=== PATIENT | female | born 1985 | race Caucasian/White ===

== ENCOUNTER 2016-11-05 00:53 | Emergency (ER) | payer OTHER ==
[2016-11-05] MEDS ORDERED: DICYCLOMINE 10 MG CAPSULE PO STA (01:07)
[2016-11-05] MEDS ORDERED: MAG HYDROX/AL HYDROX/SIMETH 30 ML UDC PO STA (01:07)
[2016-11-05] MEDS ORDERED: LIDOCAINE VISCOUS 2% 15 ML UDC MM STA (01:07)
[2016-11-05] MEDS ORDERED: FAMOTIDINE 20 MG/2 ML VIAL IVP STA (01:07)
[2016-11-05] MEDS ORDERED: ONDANSETRON 4 MG/2 ML VIAL IVP STA (01:08)
[2016-11-05] MEDS ORDERED: ONDANSETRON 4 MG/2 ML VIAL ONE (01:13)
[2016-11-05] MEDS ORDERED: LIDOCAINE VISCOUS 2% 15 ML UDC MM ONE (01:13)
[2016-11-05] MEDS ORDERED: FAMOTIDINE 20 MG/2 ML VIAL ONE (01:14)
[2016-11-05] MEDS ORDERED: DICYCLOMINE 10 MG CAPSULE PO ONE (01:14)
[2016-11-05] MEDS ORDERED: MAG HYDROX/AL HYDROX/SIMETH 30 ML UDC ONE (01:14)
== END 2016-11-05 03:16 | disposition home or self-care (01) ==
DX: K52.9 Noninfective gastroenteritis and colitis, unspecified (principal); R07.9 Chest pain, unspecified; E03.9 Hypothyroidism, unspecified
CPT/HCPCS: 36415; 71020; 80053; 81003; 83690; 84484; 85025; 93005; 93010; 96374; 96375; 99283; 99284; A9270

== ENCOUNTER 2017-02-19 13:09 | Outpatient (CLI) | payer OTHER ==
[2017-02-19 14:01] LABS: BASOPHILS % (AUTO) 0.5 %; EOSINOPHILS # (AUTO) 0.1 10^3/uL (0.0-0.7); EOSINOPHILS % (AUTO) 1.4 %; HCT - HEMATOCRIT 37.5 % (37.0-47.0); HGB - HEMOGLOBIN 12.4 g/dL (12.0-16.0); LYMPHOCYTES % (AUTO) 43.7 %; MEAN CORPUSCULAR HEMOGLOBIN 27.9 pg (27.0-31.0); MEAN CORPUSCULAR VOLUME 84.7 fL (81.0-99.0); MONOCYTES # (AUTO) 0.5 10^3/uL (0.0-1.0); MONOCYTES % (AUTO) 12.1 %; NEUTROPHILS # (AUTO) 1.9 10^3/uL (1.5-6.6); NEUTROPHILS % (AUTO) 42.3 %; RED BLOOD COUNT 4.43 10^6/uL (4.20-5.40); RED CELL DISTRIBUTION WIDTH 14.2 % (12.0-15.0); UNCORRECTED WHITE BLOOD COUNT 4.5 x10^3/uL; WHITE BLOOD COUNT 4.5 x10^3/uL (4.8-10.8)
--- NOTE | 2017-02-19 14:09 | XRAY Preliminary Report ---
Exam: XR Chest 2 View PA/LAT IMPRESSION: Normal 2-view chest radiography. [facility] SITE ID: [id number]
--- NOTE | 2017-02-19 14:11 | XRAY Report ---
EXAM: CHEST RADIOGRAPHY EXAM DATE: 02/19/2017 01:46 PM. CLINICAL HISTORY: Pneumonia COMPARISON: Chest x-ray 11/05/2016. TECHNIQUE: 2 views. FINDINGS: Lungs/Pleura: No focal opacities evident. No pleural effusion. No pneumothorax. Normal volumes. Mediastinum: Heart and mediastinal contours are unremarkable. Other: None. IMPRESSION: Normal 2-view chest radiography. [facility] Referring Provider Line: [phone] SITE ID: [id number]
[2017-02-19 14:16] LABS: ALBUMIN/GLOBULIN RATIO 1.1 (1.0-2.2); BILIRUBIN,TOTAL 0.5 mg/dL (0.2-1.0); CALCIUM 8.8 mg/dL (8.5-10.3); CREATININE 0.8 mg/dL (0.4-1.0); POTASSIUM 3.8 mmol/L (3.5-5.0); TOTAL PROTEIN 7.7 g/dL (6.7-8.2)
== END 2017-02-19 13:10 | disposition home or self-care (01) ==
LOC: LAB 13:09
PROVIDERS: ATTEND Specialist
DX: J18.9 Pneumonia, unspecified organism (principal); E66.9 Obesity, unspecified; R53.83 Other fatigue
CPT/HCPCS: 36415; 71020; 80053; 85025

== ENCOUNTER 2017-03-29 14:25 | Outpatient (CLI) | payer OTHER | END 2017-03-29 14:26 | disposition home or self-care (01) | LOC: SC 14:25 | PROVIDERS: ATTEND Nurse Practitioner Family | DX: G47.10 Hypersomnia, unspecified (principal); G47.8 Other sleep disorders; R06.83 Snoring | CPT/HCPCS: 99203; 99212 ==

== ENCOUNTER 2017-05-13 21:57 | Outpatient (CLI) | payer OTHER | END 2017-05-13 21:58 | disposition home or self-care (01) | LOC: SC 21:57 | PROVIDERS: ATTEND Internal Medicine Pulmonary Disease | DX: G47.9 Sleep disorder, unspecified (principal); R06.83 Snoring; R51 Headache; R53.83 Other fatigue; R00.2 Palpitations | CPT/HCPCS: 95810 ==

== ENCOUNTER 2017-06-08 14:22 | Outpatient (CLI) | payer OTHER | END 2017-06-08 14:23 | disposition home or self-care (01) | LOC: SC 14:22 | PROVIDERS: ATTEND Nurse Practitioner Family | DX: R06.83 Snoring (principal); E66.01 Morbid (severe) obesity due to excess calories; R53.83 Other fatigue | CPT/HCPCS: 99212; 99214 ==

== ENCOUNTER 2017-08-25 10:06 | Outpatient (CLI) | payer OTHER | END 2017-08-25 10:07 | disposition home or self-care (01) | LOC: SC 10:06 | PROVIDERS: ATTEND Nurse Practitioner Family | DX: G47.30 Sleep apnea, unspecified (principal); R06.83 Snoring | CPT/HCPCS: 99212; 99213 ==

== ENCOUNTER 2017-09-13 16:29 | Outpatient (CLI) | payer OTHER ==
[2017-09-13 17:10] LABS: HB2 TOTAL 14.3 g/dL; HEMOGLOBIN A1C 0.54 g/dL; HEMOGLOBIN A1C % 5.6 % (4.6-6.2)
[2017-09-13 17:31] LABS: T4 (THYROXINE) 6.63 ug/dL (6.09-12.23)
[2017-09-13 17:35] LABS: THYROID STIMULATING HORMONE 2.59 uIU/mL (0.34-5.60)
== END 2017-09-13 16:30 | disposition home or self-care (01) ==
LOC: LAB 16:29
PROVIDERS: ATTEND Physician Assistant
DX: R53.83 Other fatigue (principal); R73.01 Impaired fasting glucose
CPT/HCPCS: 36415; 83036; 84436; 84443

== ENCOUNTER 2017-10-13 09:50 | Outpatient (CLI) | payer OTHER ==
--- NOTE | 2017-10-14 06:58 | MRI Report ---
EXAM: MRI LUMBAR SPINE WITHOUT CONTRAST EXAM DATE: 10/13/2017 10:37 AM. CLINICAL HISTORY: Low back pain. Radiating low back pain down the right lower extremity. Right foot n umbness. COMPARISON: None. TECHNIQUE: Multiplanar, multisequence T1-weighted and fluid-sensitive sequences of the lumbar spine f rom T12 to S1 without contrast. Other: None. FINDINGS: Spinal Cord: The conus terminates at T12. The conus medullaris and cauda equina are unremarkable. Alignment: No scoliosis or spondylolisthesis. Bone Marrow: Five [id number] lumbar vertebral bodies are assumed. T11 vertebral body hemangioma. Multiple small chronic Schmorl's nodes including superiorly at T11 and T12 and inferiorly at T12. Disk Levels/Facets: T12-L1: Unremarkable. L1-L2: Unremarkable. L2-L3: Unremarkable. L3-L4: Unremarkable. L4-L5: Unremarkable. L5-S1: Mild facet hypertrophy. Slight annular bulge, no focal extrusion or significant stenosis. No s ignificant disk space narrowing. Musculature: Mild diffuse posterior paraspinal muscle fatty atrophy. Other: Minimal midline nonspecific subcutaneous midline edema centered at L2-L3, a very common findin g that is usually of no clinical significance. IMPRESSION: No acute abnormality of the lumbar spine. Minimal degenerative changes. No significant st enosis. No focal nerve root/cauda equina impingement to explain a radiculopathy. Comment: The following findings are so common in adults without low back pain that while we report th eir presence, they must be interpreted with caution and in the context of the clinical situation. (Re dev Berrios et al, Spine 2001) Prevalence of findings in patients without low back pain: Disk degeneration (any evidence): 92% Disk desiccation/T2 signal loss: 83% Disk height loss: 56% Disk bulge: 64% Disk protrusion: 32% Annular tear/high intensity zone: 38% [facility] Referring Provider Line: [phone] SITE ID: [id number]
== END 2017-10-13 09:51 | disposition home or self-care (01) ==
LOC: DI 09:50
PROVIDERS: ATTEND Physician Assistant
DX: M47.897 Other spondylosis, lumbosacral region (principal); M51.37 Other intervertebral disc degeneration, lumbosacral region
CPT/HCPCS: 72148

== ENCOUNTER 2018-01-02 10:46 | Outpatient (CLI) | payer OTHER | END 2018-01-02 10:47 | disposition home or self-care (01) | LOC: SC 10:46 | PROVIDERS: ATTEND Nurse Practitioner Family | DX: G47.33 Obstructive sleep apnea (adult) (pediatric) (principal) | CPT/HCPCS: 99212; 99214 ==

== ENCOUNTER 2018-02-21 08:54 | Outpatient (CLI) | payer OTHER | END 2018-02-21 08:55 | disposition home or self-care (01) | LOC: SC 08:54 | PROVIDERS: ATTEND Nurse Practitioner Family | DX: G47.33 Obstructive sleep apnea (adult) (pediatric) (principal) | CPT/HCPCS: 99212; 99214 ==

== ENCOUNTER 2018-03-29 11:06 | Outpatient (CLI) | payer OTHER | END 2018-03-29 11:07 | disposition home or self-care (01) | LOC: SC 11:06 | PROVIDERS: ATTEND Nurse Practitioner Family | DX: G47.33 Obstructive sleep apnea (adult) (pediatric) (principal) | CPT/HCPCS: 99212; 99214 ==

== ENCOUNTER 2018-04-06 17:22 | Emergency (ER) | payer OTHER ==
--- NOTE | 2018-04-06 18:10 | ED Physician Documentation ---
History of Present Illness - Stated complaint Stated Complaint: BACK PX - Chief complaint Chief Complaint: General - History obtained from History obtained from: Patient - History of Present Illness Timing: Other (For the last 2 weeks and worse over the last 3 days she has had left posterior mid and upper back pain that is worse if she bends, takes a deep breath, or twists. It is mild with shallow breathing and worse with deep breathing. She is not short of breath per se. She had a near fall a couple of weeks ago where she might have strained the chest wall but did not hit it directly. She denies any significant cough or fever. No significant pedal edema or calf pain. There is a small possibility of .) Review of Systems Constitutional: denies: Fever, Chills Throat: denies: Dental pain / toothache, Sore throat Cardiac: denies: Palpitations Respiratory: denies: Dyspnea, Cough PD PAST MEDICAL HISTORY - Past Medical History Past Medical History: Yes Endocrine/Autoimmune: HyPOthyroidism - Past Surgical History Past Surgical History: No - Allergies Allergies/Adverse Reactions: Allergies Allergy/AdvReac Type Severity Reaction Status Date / Time Penicillins Allergy Rash Verified 11/05/16 01:01 Sulfa (Sulfonamide AdvReac Emesis Verified 11/05/16 01:01 Antibiotics) Tetracyclines AdvReac Emesis Verified 04/06/18 17:32 - Social History Does the pt smoke?: No Smoking Status: Never smoker Does the pt drink ETOH?: No Does the pt have substance abuse?: No - Immunizations Immunizations are current?: Yes - POLST Patient has POLST: No POLST Status: Full Code PD ED PE NORMAL - Vitals Vital signs reviewed: Yes - General General: Alert and oriented X 3, No acute distress - HEENT HEENT: PERRL, EOMI, Pharynx benign - Neck Neck: Supple, no meningeal sign, No bony TTP - Cardiac Cardiac: RRR, No murmur - Respiratory Respiratory: No respiratory distress, Clear bilaterally, Other (She has tenderness of the left parathoracic muscles and ribs laterally without abdominal tenderness. Lungs are clear.) - Extremities Extremities: No edema, No calf tenderness / cord - Neuro Neuro: Alert and oriented X 3, Normal speech Results - Vitals Vitals: Vital Signs - 24 hr 04/06/18 17:28 Temperature 36.1 C L Heart Rate 76 Respiratory 20 Rate Blood Pressure 159/89 H O2 Saturation 100 Oxygen O2 Source Room air - Labs Labs: Laboratory Tests 04/06/18 16:30 Urine Color YELLOW Urine Clarity CLEAR Urine pH 6.0 Ur Specific [place] 1.010 Urine Protein NEGATIVE Urine Glucose (UA) NEGATIVE Urine Ketones NEGATIVE Urine Occult Blood TRACE-LYSE Urine Nitrite NEGATIVE Urine Bilirubin NEGATIVE Urine Urobilinogen 0.2 (NORMAL) Ur Leukocyte Esterase NEGATIVE Ur Microscopic Review NOT INDICATED Urine Culture Comments NOT INDICATED Urine HCG, Qual NEGATIVE - Rads (name of study) Left ribs and chest Radiology: EMP read contemporaneously (normal) PD MEDICAL DECISION MAKING - ED course ED course: I considered pulmonary embolism in this patient. Clinically the pretest probability of pulmonary embolism is less than 15%. I applied to the PERC rules as follows: The patient's age is under 50, heart rate less than 100, oxygen saturation greater than 94%, the patient does not have a history of DVT or PE. Patient has no recent trauma or surgery. The patient has no hemoptysis. The patient is not on exogenous estrogens. The patient does not have clinical signs suggesting DVT. As such the patient ruled out for pulmonary embolism by PERC criteria. - Sepsis Event Vital Signs: Vital Signs - 24 hr 04/06/18 17:28 Temperature 36.1 C L Heart Rate 76 Respiratory 20 Rate Blood Pressure 159/89 H O2 Saturation 100 Oxygen O2 Source Room air Departure - Departure Disposition: 01 Home, Self Care Clinical Impression: Intercostal muscle strain Qualifiers: Encounter type: initial encounter Qualified Code(s): S29.011A - Strain of muscle and tendon of front wall of thorax, initial encounter Condition: Good Record reviewed to determine appropriate education?: Yes Instructions: ED Contusion Chest Wall Comments: Ibuprofen and heat for pain, return if worse. Follow-up with your doctor in a week if not better. Your blood pressure was elevated today on check into the emergency department. This does not mean that you have hypertension, it is a common phenomenon to come to the emergency department and have elevated blood pressure. I recommend that you see your primary care physician within the week to have it rechecked when you are feeling better.
[2018-04-06 18:23] LABS: BILIRUBIN,URINE NEGATIVE (NEGATIVE); GLUCOSE, URINE (UA) NEGATIVE (NEGATIVE); KETONES,URINE (UA) NEGATIVE (NEGATIVE); LEUKOCYTE ESTERASE, URINE NEGATIVE (NEGATIVE); NITRITE,URINE NEGATIVE (NEGATIVE); OCCULT BLOOD,URINE TRACE-LYSE (NEGATIVE); PROTEIN,URINE NEGATIVE (NEGATIVE); UROBILINOGEN,URINE 0.2 (NORMAL) E.U./dL (NORMAL)
[2018-04-06 18:27] LABS: CLARITY,URINE CLEAR (CLEAR); HCG UR QUAL NEGATIVE
--- NOTE | 2018-04-06 19:16 | XRAY Report ---
Procedure Date: 04/06/2018 Accession Number: [id number] / [id number] Procedure: XR - Ribs w/PA Chest LT CPT Code: FULL RESULT: EXAM: LEFT RIB RADIOGRAPHY EXAM DATE: 04/06/2018 07:00 PM. CLINICAL HISTORY: Wait for neg preg. L chest wall pain. COMPARISON: None. TECHNIQUE: 1 view of the chest and 2 views of the ribs. FINDINGS: Bones: Normal. No fracture or bone lesion. Lungs: No focal opacities. No pneumothorax. No pleural effusions. Mediastinum: Heart and mediastinal contours are unremarkable. Other: None. IMPRESSION: Normal chest and rib radiography. [facility]
[2018-04-06 19:28] VITALS: BP 123/73
== END 2018-04-06 19:27 | disposition home or self-care (01) ==
LOC: ED 17:22
DX: S29.011A Strain of muscle and tendon of front wall of thorax, initial encounter (principal); R03.0 Elevated blood-pressure reading, without diagnosis of hypertension
CPT/HCPCS: 81001; 81003; 81025; 87086; 99283

== ENCOUNTER 2018-04-26 08:51 | Emergency (ER) | payer OTHER ==
[2018-04-26 09:00] VITALS: BP 133/88
[2018-04-26] MEDS ORDERED: DEXAMETHASONE 10 MG/ML VIAL PO STA (10:14)
[2018-04-26] MEDS ORDERED: MECLIZINE 12.5 MG TABLET PO STA (10:14)
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
--- NOTE | 2018-04-26 10:43 | CT Report ---
Procedure Date: 04/26/2018 Accession Number: [id number] / [id number] Procedure: CT - Head W/O CPT Code: FULL RESULT: EXAM: CT HEAD EXAM DATE: 04/26/2018 10:33 AM. CLINICAL HISTORY: Nasal contusion persistent dizziness. COMPARISON: None. TECHNIQUE: Multiaxial CT images were obtained from the foramen magnum to the vertex. Reformats: Coronal. IV contrast: None. In accordance with CT protocol optimization, one or more of the following dose reduction techniques were utilized for this exam: automated exposure control, adjustment of mA and/or KV based on patient size, or use of iterative reconstructive technique. FINDINGS: Parenchyma: No intraparenchymal hemorrhage. No evidence of mass, midline shift, or CT findings of infarction. Neville-white differentiation is distinct. Extraaxial Spaces: Normal for age. No subdural or epidural collections identified. Ventricles: Normal in size and position. Sinuses and Orbits: Imaged paranasal sinuses, orbits, and mastoids show no significant abnormality. Bones: No evidence of fracture or calvarial defect. Other: None. IMPRESSION: Normal head CT. [facility]
== END 2018-04-26 11:26 | disposition home or self-care (01) ==
LOC: ED 08:51
DX: H83.03 Labyrinthitis, bilateral (principal)
CPT/HCPCS: 70450; 99283; A9270

== ENCOUNTER 2018-05-01 09:26 | Emergency (ER) | payer OTHER ==
--- NOTE | 2018-05-01 10:12 | ED Physician Documentation ---
PD HPI NVD - Stated complaint Stated Complaint: DIZZY/NAUSEA/VOMITING - Chief complaint Chief Complaint: Neuro - History obtained from History obtained from: Patient - History of Present Illness Timing - onset: How many weeks ago (2 weeks of undulating dgree of symptoms. Better rested, worse when gets up from bed in AMs. Does have feeling of off balance.) Timing - duration: Weeks Timing - details: Gradual onset, Still present, Waxing and waning Associated symptoms: No: Fever, Near syncope / syncope, Loss of appetite, Dysuria Contributing factors: No: Sick contact, Bad food, Travel Worsened by: Moving (head) Similar symptoms before: Has not had sx before Recently seen: Emergency Dept (5 days ago for these symptoms, with normal head CT and labs. Rx with Meclizine only. She says it helps symptoms but theoverall dizziness has persisted when not taking meds.) Review of Systems Constitutional: denies: Fever, Chills, Myalgias Eyes: denies: Loss of vision, Decreased vision, Photophobia Ears: reports: Tinnitus/ringing. denies: Loss of hearing, Ear pain Nose: denies: Rhinorrhea / runny nose, Congestion, Sinus pressure / pain Throat: denies: Dental pain / toothache, Sore throat Cardiac: denies: Chest pain / pressure, Palpitations Respiratory: denies: Dyspnea, Cough GI: denies: Abdominal Pain, Nausea, Vomiting PD PAST MEDICAL HISTORY - Past Medical History Cardiovascular: None Respiratory: None Neuro: None Endocrine/Autoimmune: HyPOthyroidism - Past Surgical History Past Surgical History: No - Present Medications Home Medications: Ambulatory Orders Medication Instructions Recorded Confirmed Meclizine HCl 25 mg PO Q6HR PRN #20 tab.chew 04/26/18 Cetirizine [ZyrTEC] 10 mg PO DAILY #20 tablet 05/01/18 Dexamethasone [Decadron] 4 mg PO DAILY #5 tablet 05/01/18 Meclizine [Antivert] 25 mg PO Q6H PRN #30 tablet 05/01/18 - Allergies Allergies/Adverse Reactions: Allergies Allergy/AdvReac Type Severity Reaction Status Date / Time adhesive tape Allergy Rash Verified 04/26/18 09:15 Penicillins Allergy Rash Verified 04/26/18 09:00 Sulfa (Sulfonamide AdvReac Emesis Verified 04/26/18 09:00 Antibiotics) Tetracyclines AdvReac Emesis Verified 04/26/18 09:00 - Social History Does the pt smoke?: No Smoking Status: Never smoker Does the pt drink ETOH?: No Does the pt have substance abuse?: No - Family History Family history: reports: Non contributory - Immunizations Immunizations are current?: Yes - POLST Patient has POLST: No POLST Status: Full Code PD ED PE NORMAL - Vitals Vital signs reviewed: Yes - General General: Alert and oriented X 3, No acute distress, Well developed/nourished - HEENT HEENT: PERRL, EOMI (mild nystagmus to the left), Ears normal, Moist mucous membranes, Pharynx benign - Neck Neck: Supple, no meningeal sign, No adenopathy, No JVD - Cardiac Cardiac: RRR, No murmur - Respiratory Respiratory: Clear bilaterally - Abdomen Abdomen: Soft, Non tender - Back Back: No CVA TTP - Derm Derm: Normal color, Warm and dry - Neuro Neuro: Alert and oriented X 3, logistics solution manager 2-12 intact, No motor deficit, No sensory deficit, Normal speech, Other Eye Opening: Spontaneous Motor: Obeys Commands Verbal: Oriented GCS Score: 15 Results - Vitals Vitals: Oxygen O2 Source Room air - Labs Labs: Laboratory Tests 05/01/18 05/01/18 05/01/18 10:55 10:55 10:55 WBC 5.7 RBC 4.96 Hgb 13.8 Hct 42.6 MCV 85.9 MCH 27.8 MCHC 32.4 RDW 13.8 Plt Count 291 MPV 7.7 L Neut # (Auto) 3.0 Lymph # (Auto) 2.1 [place]royo # (Auto) 0.4 Eos # (Auto) 0.2 Baso # (Auto) 0.0 Absolute Nucleated RBC 0.00 Nucleated RBC % 0.0 ESR 17 Sodium 137 Potassium 4.1 Chloride 102 Carbon Dioxide 26 Anion Gap 9.0 BUN 13 Creatinine 0.7 Estimated GFR (MDRD) 96 Glucose 91 Calcium 9.3 Magnesium 1.9 Total Bilirubin 0.9 AST 21 ALT 31 Alkaline Phosphatase 79 Total Protein 7.8 Albumin 4.3 Globulin 3.5 Albumin/Globulin Ratio 1.2 Lipase 34 TSH 05/01/18 10:55 WBC RBC Hgb Hct MCV MCH MCHC RDW Plt Count MPV Neut # (Auto) Lymph # (Auto) [place] # (Auto) Eos # (Auto) Baso # (Auto) Absolute Nucleated RBC Nucleated RBC % ESR Sodium Potassium Chloride Carbon Dioxide Anion Gap BUN Creatinine Estimated GFR (MDRD) Glucose Calcium Magnesium Total Bilirubin AST ALT Alkaline Phosphatase Total Protein Albumin Globulin Albumin/Globulin Ratio Lipase TSH 2.25 PD MEDICAL DECISION MAKING - ED course Complexity details: reviewed results (CT head 5 days ago was okay. ), considered differential (dizziness/vertigo. States trouble walking but has straight/steady gait here. No ataxia with hands. Normal vision. Seems peripheral vertigo. Has referral to ENT but appt not until June. In addition to labrynthitis, could consider tumor/swelling/bleed, but had CT head at prior visit. Consider MRI for MS or other small findings. Consider MRI of ear/cochlear ), d/w patient - Sepsis Event Vital Signs: Oxygen O2 Source Room air Departure - Departure Disposition: Home, Self Care Clinical Impression: Vertigo Condition: Stable Record reviewed to determine appropriate education?: Yes Instructions: ED Vertigo Unspecified Follow-Up: Caroline Brownlee PA-C [Primary Care Provider] - Prescriptions: Cetirizine [ZyrTEC] 10 mg PO DAILY #20 tablet Dexamethasone [Decadron] 4 mg PO DAILY #5 tablet Meclizine [Antivert] 25 mg PO Q6H PRN #30 tablet PRN Reason: Vertigo Comments: Drink lots of fluids. Steroids daily for the next 5 days. Add cetirizine antihistamine daily for the next week or 2. Meclizine if needed for dizziness/ vertigo. Call the ENT to see if they have a sooner appointment than June. Activity as able. Discharge Date/Time: 05/01/18 13:08
[2018-05-01] MEDS ORDERED: DEXAMETHASONE 10 MG/ML VIAL PO STA (10:37)
[2018-05-01 11:03] LABS: BASOPHILS % (AUTO) 0.5 %; EOSINOPHILS # (AUTO) 0.2 10^3/uL (0.0-0.7); EOSINOPHILS % (AUTO) 2.8 %; HGB - HEMOGLOBIN 13.8 g/dL (12.0-16.0); LYMPHOCYTES # (AUTO) 2.1 10^3/uL (1.5-3.5); LYMPHOCYTES % (AUTO) 36.8 %; MEAN CORPUSCULAR HEMOGLOBIN 27.8 pg (27.0-31.0); MEAN CORPUSCULAR HGB CONC 32.4 g/dL (32.0-36.0); MEAN CORPUSCULAR VOLUME 85.9 fL (81.0-99.0); MEAN PLATELET VOLUME 7.7 fL (7.9-10.8); MONOCYTES # (AUTO) 0.4 10^3/uL (0.0-1.0); MONOCYTES % (AUTO) 7.4 %; NEUTROPHILS % (AUTO) 52.5 %; PLT - PLATELET COUNT 291 10^3/uL (130-450); RED BLOOD COUNT 4.96 10^6/uL (4.20-5.40); RED CELL DISTRIBUTION WIDTH 13.8 % (12.0-15.0); WHITE BLOOD COUNT 5.7 x10^3/uL (4.8-10.8)
[2018-05-01 11:16] LABS: ALBUMIN 4.3 g/dL (3.2-5.5); ALBUMIN/GLOBULIN RATIO 1.2 (1.0-2.2); BILIRUBIN,TOTAL 0.9 mg/dL (0.2-1.0); CALCIUM 9.3 mg/dL (8.5-10.3); CREATININE 0.7 mg/dL (0.4-1.0); MAGNESIUM 1.9 mg/dL (1.7-2.8); TOTAL PROTEIN 7.8 g/dL (6.7-8.2)
[2018-05-01 12:35] VITALS: BP 147/91
== END 2018-05-01 13:08 | disposition home or self-care (01) ==
LOC: ED 09:26
DX: R42 Dizziness and giddiness (principal); H93.19 Tinnitus, unspecified ear
CPT/HCPCS: 36415; 80053; 83690; 83735; 84443; 85025; 85651; 99283

== ENCOUNTER 2018-05-09 16:44 | Emergency (ER) | payer OTHER ==
--- NOTE | 2018-05-09 17:36 | ED Physician Documentation ---
PD HPI HEAD INJURY - Stated complaint Stated Complaint: DIZZY/GLF - Chief complaint Chief Complaint: Heent - History obtained from History obtained from: Patient - History of Present Illness Mechanism of head injury: Fell (she was feeling dizzy as moving quicker and lost balance, falling over. Struck right knee and elbow as she fell. Did not strike head. Has been having dizziness for 2-3 weeks now.) Timing - onset: Today Location of injury: Right Associated symptoms: Nausea / vomiting (intermittent with the worse dizziness.) . No: LOC, AMS, Neck pain Symptoms improve with: Rest Symptoms worsen with: Palpation, Movement Recently seen: Clinic (seen by chiropractor and had Navya maneuvers tried without improvement.), Emergency Dept Review of Systems Constitutional: denies: Fever, Chills, Myalgias Eyes: denies: Loss of vision, Decreased vision, Photophobia Ears: denies: Loss of hearing, Ear pain Nose: denies: Rhinorrhea / runny nose, Congestion Throat: denies: Sore throat Cardiac: denies: Chest pain / pressure, Palpitations Respiratory: denies: Dyspnea, Cough GI: reports: Nausea, Vomiting. denies: Abdominal Pain : denies: Dysuria, Frequency Skin: denies: Rash, Lesions PD PAST MEDICAL HISTORY - Past Medical History Past Medical History: Yes Cardiovascular: None Respiratory: None Neuro: None Endocrine/Autoimmune: HyPOthyroidism - Past Surgical History Past Surgical History: No - Present Medications Home Medications: Ambulatory Orders Medication Instructions Recorded Confirmed Meclizine HCl 25 mg PO Q6HR PRN #20 tab.chew 04/26/18 Cetirizine [ZyrTEC] 10 mg PO DAILY #20 tablet 05/01/18 - Allergies Allergies/Adverse Reactions: Allergies Allergy/AdvReac Type Severity Reaction Status Date / Time adhesive tape Allergy Rash Verified 05/09/18 16:53 Penicillins Allergy Rash Verified 05/09/18 16:53 Sulfa (Sulfonamide AdvReac Emesis Verified 05/09/18 16:53 Antibiotics) Tetracyclines AdvReac Emesis Verified 05/09/18 16:53 - Social History Does the pt smoke?: No Smoking Status: Never smoker Does the pt drink ETOH?: No Does the pt have substance abuse?: No - Family History Family history: reports: Non contributory - Immunizations Immunizations are current?: Yes - POLST Patient has POLST: No POLST Status: Full Code PD ED PE NORMAL - Vitals Vital signs reviewed: Yes - General General: Alert and oriented X 3, No acute distress, Well developed/nourished - HEENT HEENT: PERRL, EOMI (with some nystagmus to the left. ), Ears normal, Pharynx benign, Dentition benign - Neck Neck: Supple, no meningeal sign, No adenopathy, No bruit - Cardiac Cardiac: RRR, No murmur - Respiratory Respiratory: Clear bilaterally - Derm Derm: Normal color, Warm and dry - Extremities Extremities: No deformity, No tenderness to palpate, Normal ROM s pain - Neuro Neuro: Alert and oriented X 3, tool and die technician 2-12 intact, No motor deficit, No sensory deficit, Normal speech Eye Opening: Spontaneous Motor: Obeys Commands Verbal: Oriented GCS Score: 15 PD ED PE EXPANDED - General General: Alert, No acute distress, Well developed/nourished, Disheveled, poorly kept Results - Vitals Vitals: Oxygen O2 Source Room air PD MEDICAL DECISION MAKING - ED course Complexity details: reviewed results (elbow and knee xrays are okay. ), considered differential, d/w patient, d/w health consultant (Dr. Mariscal, ENT contract clerk. ) - Sepsis Event Vital Signs: Oxygen O2 Source Room air Departure - Departure Disposition: 01 Home, Self Care Clinical Impression: Vertigo Fall Qualifiers: Encounter type: initial encounter Qualified Code(s): W19.XXXA - Unspecified fall, initial encounter Knee contusion Qualifiers: Encounter type: initial encounter Laterality: right Qualified Code(s): S80.01XA - Contusion of right knee, initial encounter Elbow contusion Qualifiers: Encounter type: initial encounter Laterality: right Qualified Code(s): S50.01XA - Contusion of right elbow, initial encounter Condition: Stable Record reviewed to determine appropriate education?: Yes Instructions: ED Contusion Elbow, ED Dizziness [facility] Follow-Up: Caroline Brownlee PA-C [Primary Care Provider] - SALBADOR MARISCAL MD [Physician No Access] - Comments: Continue with the meclizine 3 times a day. Tylenol or ibuprofen if needed for pains. There are no fractures seen on x-ray. I talked with Dr. Mariscal who is on-call for the ENT group and he said to call the office tomorrow and let them know I spoke with him and he would like to have you seen sooner than you are currently scheduled appointment. Preferably would be this week. Discharge Date/Time: 05/09/18 20:00
[2018-05-09 18:56] VITALS: BP 134/97
--- NOTE | 2018-05-09 19:43 | XRAY Report ---
Reason: fall with direct impact Procedure Date: 05/09/2018 Accession Number: [id number] / [id number] Procedure: XR - Elbow 3 View RT CPT Code: FULL RESULT: EXAM: RIGHT ELBOW RADIOGRAPHY EXAM DATE: 05/09/2018 07:23 PM. CLINICAL HISTORY: Fall with direct impact. COMPARISON: None. TECHNIQUE: 3 views. FINDINGS: Bones: Normal. No fractures or bone lesions. Joints: Normal. No effusion. No subluxation. Soft Tissues: Normal. No soft tissue swelling. IMPRESSION: Normal elbow radiography. [facility]
--- NOTE | 2018-05-09 19:57 | XRAY Report ---
Reason: fall Procedure Date: 05/09/2018 Accession Number: [id number] / [id number] Procedure: XR - Knee 3 View RT CPT Code: FULL RESULT: EXAM: RIGHT KNEE RADIOGRAPHY EXAM DATE: 05/09/2018 07:23 PM. CLINICAL HISTORY: Fall. COMPARISON: None. TECHNIQUE: 3 views. FINDINGS: Bones: Bony density along the superior aspect of the fibular head appears well corticated and most likely represents an accessory ossification center. There is otherwise no evidence of acute fracture. Joints: Normal. No effusion. No subluxations. Soft Tissues: Normal. No soft tissue swelling. IMPRESSION: Unremarkable right knee radiographs. [facility]
== END 2018-05-09 20:00 | disposition home or self-care (01) ==
LOC: ED 16:44
DX: R42 Dizziness and giddiness (principal); S80.01XA Contusion of right knee, initial encounter; S50.01XA Contusion of right elbow, initial encounter; W18.39XA Other fall on same level, initial encounter
CPT/HCPCS: 99283

== ENCOUNTER 2018-08-20 10:36 | Emergency (ER) | payer OTHER ==
[2018-08-20 10:51] VITALS: BP 125/86
--- NOTE | 2018-08-20 12:44 | ED Physician Documentation ---
PD HPI URI - Stated complaint Stated Complaint: CONGESTION/COUGH - Chief complaint Chief Complaint: Resp - History obtained from History obtained from: Patient - History of Present Illness Timing - onset: Other (Sick for 7 days with nonproductive cough, nasal congestion, mild sore throat. Her son is sick with similar illness. No fevers. No possibility of .) Review of Systems Constitutional: denies: Fever, Chills Nose: reports: Rhinorrhea / runny nose, Congestion Throat: reports: Sore throat Respiratory: reports: Cough. denies: Dyspnea PD PAST MEDICAL HISTORY - Past Medical History Past Medical History: Yes Cardiovascular: None Respiratory: None Neuro: None Endocrine/Autoimmune: HyPOthyroidism - Past Surgical History Past Surgical History: No - Present Medications Home Medications: Ambulatory Orders Medication Instructions Recorded Confirmed No Known Home Medications 08/20/18 08/20/18 - Allergies Allergies/Adverse Reactions: Allergies Allergy/AdvReac Type Severity Reaction Status Date / Time adhesive tape Allergy Rash Verified 08/20/18 10:51 Penicillins Allergy Rash Verified 08/20/18 10:51 Sulfa (Sulfonamide AdvReac Emesis Verified 08/20/18 10:51 Antibiotics) Tetracyclines AdvReac Emesis Verified 08/20/18 10:51 - Social History Does the pt smoke?: No Smoking Status: Never smoker Does the pt drink ETOH?: No Does the pt have substance abuse?: No - Immunizations Immunizations are current?: Yes - POLST Patient has POLST: No POLST Status: Full Code PD ED PE NORMAL - Vitals Vital signs reviewed: Yes - General General: Alert and oriented X 3, No acute distress - HEENT HEENT: Ears normal, Pharynx benign - Neck Neck: Supple, no meningeal sign, No bony TTP - Cardiac Cardiac: RRR, No murmur - Respiratory Respiratory: No respiratory distress, Clear bilaterally - Abdomen Abdomen: Non tender - Neuro Neuro: Alert and oriented X 3, Normal speech Results - Vitals Vitals: Vital Signs - 24 hr 08/20/18 10:49 Temperature 36.3 C L Heart Rate 84 Respiratory 18 Rate Blood Pressure 125/86 H O2 Saturation 100 Oxygen O2 Source Room air Departure - Departure Disposition: 01 Home, Self Care Clinical Impression: Upper respiratory tract infection Qualifiers: URI type: unspecified viral URI Qualified Code(s): J06.9 - Acute upper re spiratory infection, unspecified Condition: Good Record reviewed to determine appropriate education?: Yes Instructions: ED URI Viral Comments: Return if worsening or if you develop high fever. Follow-up with your doctor in a week if not better.
== END 2018-08-20 12:55 | disposition home or self-care (01) ==
LOC: ED 10:36
DX: J06.9 Acute upper respiratory infection, unspecified (principal); E03.9 Hypothyroidism, unspecified
CPT/HCPCS: 99282; 99283

== ENCOUNTER 2019-03-25 16:14 | Emergency (ER) | payer OTHER ==
[2019-03-25 16:23] VITALS: BP 139/80
--- NOTE | 2019-03-25 16:31 | ED Physician Documentation ---
History of Present Illness - Stated complaint Stated Complaint: RT FOOT/TOE PX - Chief complaint Chief Complaint: Ext Problem - History obtained from History obtained from: Patient - History of Present Illness Timing: Yesterday - Additonal information Additional information: Patient is a previously healthy 33-year-old female presenting with right fourth toe pain, swelling, bruising that occurred when she accidentally injured it while playing mini golf yesterday. Patient denies other injuries. Patient has been bearing weight and walking easily. Patient denies significant change in sensation, range of motion, or decrease in strength. No other improving or worsening factors noted. Review of Systems Musculoskeletal: reports: Extremity pain, Pain with weight bearing. denies: Joint pain, Extremity swelling, Joint swelling PD PAST MEDICAL HISTORY - Past Medical History Past Medical History: Yes Cardiovascular: None Respiratory: None Neuro: None Endocrine/Autoimmune: HyPOthyroidism - Past Surgical History Past Surgical History: No - Present Medications Home Medications: Ambulatory Orders Medication Instructions Recorded Confirmed No Known Home Medications 08/20/18 08/20/18 - Allergies Allergies/Adverse Reactions: Allergies Allergy/AdvReac Type Severity Reaction Status Date / Time adhesive tape Allergy Rash Verified 03/25/19 16:23 Penicillins Allergy Rash Verified 03/25/19 16:23 Sulfa (Sulfonamide AdvReac Emesis Verified 03/25/19 16:23 Antibiotics) Tetracyclines AdvReac Emesis Verified 03/25/19 16:23 - Social History Does the pt smoke?: No Smoking Status: Never smoker Does the pt drink ETOH?: No Does the pt have substance abuse?: No - Immunizations Immunizations are current?: Yes - POLST Patient has POLST: No POLST Status: Full Code PD ED PE NORMAL - Vitals Vital signs reviewed: Yes - General General: Alert and oriented X 3, No acute distress, Well developed/nourished - HEENT HEENT: Atraumatic, Moist mucous membranes - Cardiac Cardiac: Strong equal pulses - Respiratory Respiratory: No respiratory distress - Derm Derm: Warm and dry, No rash. No: Normal color (Right fourth toe mild swelling and ecchymosis of variable age without laceration, abrasion, or other complication noted) - Extremities Extremities: No deformity, No tenderness to palpate - Neuro Neuro: Alert and oriented X 3, No motor deficit, No sensory deficit - Psych Psych: Normal mood, Normal affect Results - Vitals Vitals: Vital Signs - 24 hr 03/25/19 16:20 Temperature 36.5 C Heart Rate 73 Respiratory 18 Rate Blood Pressure 139/80 H O2 Saturation 99 Oxygen O2 Source Room air - Labs Labs: Laboratory Tests 03/25/19 16:34 Ur Specific [place] 1.010 Urine HCG, Qual NEGATIVE PD MEDICAL DECISION MAKING - ED course Complexity details: re-evaluated patient, considered differential, d/w patient ED course: Patient presenting with isolated injury to right fourth toe. Plain films obtained which not been evidence of dislocation or fracture. Patient advised of results and recommendations feel that she can discharge home with supportive cares, return precautions, appropriate follow-up. Patient voiced understanding and is comfortable with discharge plan. Departure - Departure Disposition: 01 Home, Self Care Clinical Impression: Toe injury Qualifiers: Encounter type: initial encounter Laterality: right Qualified Code(s): S99.921A - Unspecified injury of right foot, initial encounter Condition: Good Instructions: ED Crush Injury Toe No Fx Follow-Up: KENNETH PECK MD [Primary Care Provider] - Within 3 Days Comments: Recommend rest, elevation, ice application, ibuprofen/Tylenol as needed. May dejan tape to the other toe if needed. Follow-up with primary care physician next 2 to 3 days and return to ED sooner if experience worsening symptoms, new injury, or have other concerns.
[2019-03-25 16:53] LABS: HCG UR QUAL NEGATIVE
--- NOTE | 2019-03-25 17:22 | XRAY Report ---
Reason: rolled foot, previous broken, swollen with pain Procedure Date: 03/25/2019 Accession Number: [id number] / [id number] Procedure: XR - Foot 3 View RT CPT Code: FULL RESULT: EXAM: RIGHT FOOT RADIOGRAPHY EXAM DATE: 03/25/2019 04:45 PM. CLINICAL HISTORY: Right foot swelling and pain and discoloration at third and fourth digit after rolling injury. COMPARISON: None. TECHNIQUE: 3 views. FINDINGS: Bones: Normal. No fractures or bone lesions. Joints: Normal. No subluxations. Soft Tissues: Normal. No evident focal soft tissue swelling. IMPRESSION: Normal foot radiography. [facility]
== END 2019-03-25 17:45 | disposition home or self-care (01) ==
LOC: ED 16:14
DX: S90.121A Contusion of right lesser toe(s) without damage to nail, initial encounter (principal); W22.09XA Striking against other stationary object, initial encounter; Y93.59 Activity, other involving other sports and athletics played individually; Y92.89 Other specified places as the place of occurrence of the external cause
CPT/HCPCS: 81025; 99282; 99283

== ENCOUNTER 2019-09-13 10:24 | Outpatient (CLI) | payer OTHER ==
--- NOTE | 2019-09-13 14:27 | XRAY Report ---
Reason: NECK AND BACK PAIN Procedure Date: 09/13/2019 Accession Number: [id number] / [id number] Procedure: XRN - Thoracic Spine 3 View CPT Code: Final Report FULL RESULT: EXAM: THORACIC SPINE RADIOGRAPHY EXAM DATE: 09/13/2019 10:57 AM. CLINICAL HISTORY: NECK AND BACK PAIN. COMPARISON: None. TECHNIQUE: 2 views. FINDINGS: Alignment: Trace scoliosis. No spondylolisthesis. Bones: No fractures or bone lesions. Disks: Disk heights are maintained. Soft Tissues: There is no paraspinal widening. The visualized lungs and cardiomediastinal silhouette are normal. IMPRESSION: 1. No fracture. No significant degenerative disease. 2. Trace scoliosis. [facility]
--- NOTE | 2019-09-13 14:28 | XRAY Report ---
Reason: NECK AND BACK PAIN Procedure Date: 09/13/2019 Accession Number: [id number] / [id number] Procedure: XRN - Cervical Spine 2 View CPT Code: Final Report FULL RESULT: EXAM: CERVICAL SPINE RADIOGRAPHY EXAM DATE: 09/13/2019 10:57 AM. CLINICAL HISTORY: NECK AND BACK PAIN. COMPARISONS: None. TECHNIQUE: 3 views. FINDINGS: Alignment: Normal. No spondylolisthesis or scoliosis. Bones: The cervical vertebral bodies and posterior elements are well visualized from the skull base through C7-T1. No fractures or bone lesions. Disks: Normal. Disk heights are maintained. Facets: No degenerative disease. Soft Tissues: Normal. No prevertebral soft tissue swelling. The visualized lung apices are clear. IMPRESSION: Normal cervical spine radiography. [facility]
== END 2019-09-13 10:25 | disposition home or self-care (01) ==
LOC: DI.N 10:24
PROVIDERS: ATTEND Family Medicine
DX: M54.2 Cervicalgia (principal)
CPT/HCPCS: 72040; 72072

== ENCOUNTER 2019-09-28 06:55 | Outpatient (CLI) | payer OTHER | END 2019-09-28 06:56 | disposition home or self-care (01) | LOC: LAB 06:55 | PROVIDERS: ATTEND Physician Assistant | DX: E88.01 Alpha-1-antitrypsin deficiency (principal) | CPT/HCPCS: 36415; 81599; 82977 ==

== ENCOUNTER 2019-11-21 14:24 | Outpatient (CLI) | payer OTHER | END 2019-11-21 14:25 | disposition home or self-care (01) | LOC: COV 14:24 | PROVIDERS: ATTEND Family Medicine | DX: R05 Cough (principal); R50.9 Fever, unspecified | CPT/HCPCS: 81599 ==

== ENCOUNTER 2020-07-25 10:07 | Outpatient (CLI) | payer OTHER ==
--- NOTE | 2020-07-25 15:58 | XRAY Report ---
PROCEDURE: Knee 3 View RT INDICATIONS: KNEE JOINT PAIN, RIGHT TECHNIQUE: 3 views of the right knee(s) were acquired. COMPARISON: Prior knee plain films 05/09/2018. FINDINGS: Bones: No fractures or dislocations. No suspicious bony lesions. Soft tissues: No joint effusion. No suspicious soft tissue calcifications. IMPRESSION: No trauma found, source of pain is not seen. Reviewed by: Aureliano Low MD on 07/25/2020 3:57 PM PST Approved by: Aureliano Low MD on 07/25/2020 3:57 PM PST Station ID: [id number]
== END 2020-07-25 10:08 | disposition home or self-care (01) ==
LOC: DI 10:07
PROVIDERS: ATTEND Family Medicine
DX: M25.561 Pain in right knee (principal)

== ENCOUNTER 2020-08-28 14:11 | Emergency (ER) | payer OTHER ==
[2020-08-28] MEDS ORDERED: diphenhydrAMINE INJ 50 MG/ML VIAL IM STA (14:23)
--- NOTE | 2020-08-28 16:38 | ED Physician Documentation ---
History of Present Illness - Stated complaint Stated Complaint: SWELLING/RASH IN FACE - Chief complaint Chief Complaint: Allergic Rx - History obtained from History obtained from: Patient - Additonal information Additional information: 34-year-old with past medical history of alpha-1 antitrypsin, no other medical problems, allergy to adhesive and penicillin (rash) presents with pruritic rash to face after receiving her COVID-19 vaccine. Patient denies other symptoms. Denies dizziness chest pain shortness of breath throat closing lip swelling facial swelling abdominal pain or body aches. Review of Systems Ten Systems: 10 systems reviewed and negative GI: denies: Vomiting Skin: reports: Rash PD PAST MEDICAL HISTORY - Past Medical History Past Medical History: Yes Cardiovascular: None Respiratory: None Neuro: None Endocrine/Autoimmune: HyPOthyroidism Other Past Medical History: alpha H1 antitrypsin deficiency - Past Surgical History Past Surgical History: No - Present Medications Home Medications: Ambulatory Orders Medication Instructions Recorded Confirmed No Known Home Medications 08/20/18 08/28/20 - Allergies Allergies/Adverse Reactions: Allergies Allergy/AdvReac Type Severity Reaction Status Date / Time adhesive tape Allergy Rash Verified 08/28/20 14:19 Penicillins Allergy Rash Verified 08/28/20 14:19 Sulfa (Sulfonamide AdvReac Emesis Verified 08/28/20 14:19 Antibiotics) Tetracyclines AdvReac Emesis Verified 08/28/20 14:19 - Social History Does the pt smoke?: No Smoking Status: Never smoker Does the pt drink ETOH?: No Does the pt have substance abuse?: No - Immunizations Immunizations are current?: Yes - POLST Patient has POLST: No POLST Status: Full Code PD ED PE NORMAL - Vitals Vital signs reviewed: Yes - General General: Alert and oriented X 3 - HEENT HEENT: Atraumatic, PERRL, EOMI - Neck Neck: Supple, no meningeal sign - Cardiac Cardiac: RRR - Respiratory Respiratory: No respiratory distress, Clear bilaterally - Abdomen Abdomen: Non tender, Non distended - Female Female : Deferred - Rectal Rectal: Deferred - Back Back: No spinal TTP - Derm Derm: Normal color, Other (Mild erythema to face and neck as well as left shoulder.) - Extremities Extremities: No edema - Neuro Neuro: Alert and oriented X 3 - Psych Psych: Normal mood, Normal affect Results - Vitals Vitals: Vital Signs - 24 hr 08/28/20 08/28/20 08/28/20 14:15 16:00 16:30 Temperature 36.5 C Heart Rate 86 80 88 Respiratory 17 16 16 Rate Blood Pressure 135/101 H 116/75 163/102 H O2 Saturation 99 100 100 Oxygen O2 Source Room air PD MEDICAL DECISION MAKING - ED course ED course: 34-year-old woman with allergic reaction to COVID-19 vaccine, responsive to IM Benadryl. Offered steroids and Pepcid but we are hoping not to blunt the response to the vaccine. Patient's rash has resolved and she would like to go home at this time. Strict return precautions given about other signs of allergic reaction. She will follow-up with her PMD. Departure - Departure Disposition: 01 Home, Self Care Clinical Impression: Allergic reaction, Rash Condition: Good Instructions: ED Drug React Allergic Comments: You have been seen in the emergency department for an allergic reaction. Please monitor yourself carefully over the next 72 hours as you can have a delayed reaction. You were given Benadryl but no other medications and your symptoms r esolved. Return for any new or worsening symptoms. Follow-up with your primary doctor this week. Discharge Date/Time: 08/28/20 16:45
[2020-08-28 16:44] VITALS: BP 163/102
== END 2020-08-28 16:45 | disposition home or self-care (01) ==
LOC: ED 14:11
DX: T80.62XA Other serum reaction due to vaccination, initial encounter (principal); L27.1 Localized skin eruption due to drugs and medicaments taken internally; T50.Z95A Adverse effect of other vaccines and biological substances, initial encounter; Y84.8 Other medical procedures as the cause of abnormal reaction of the patient, or of later complication, without mention of misadventure at the time of the procedure; E88.01 Alpha-1-antitrypsin deficiency
CPT/HCPCS: 96372; 99283; 99284; J1200

== ENCOUNTER 2020-10-30 08:07 | Outpatient (CLI) | payer OTHER ==
[2020-10-30 09:16] LABS: % IRON SATURATION 18 % (20-50); CHOL/HDL RATIO 2.8 (<4.4); CHOLESTEROL 154 mg/dL; HDL CHOLESTEROL 55 mg/dL; IRON 71 ug/dL (28-170); LDL CHOLESTEROL,CALCULATED 90 mg/dL; LDL/HDL RATIO 1.6 (<4.4); TOTAL IRON BINDING CAPACITY 405 ug/dL (250-450); TRANSFERRIN 289 mg/dL (192-382); VLDL CHOLESTEROL 9 mg/dL
[2020-10-31 12:47] LABS: IMMUNOGLOBULIN E 2 kU/L (<OR=114)
[2020-11-02 01:02] LABS: SMOOTH MUSCLE IGG AB <20 U
[2020-11-03 20:57] LABS: LIVER KIDNEY MICROSOME AB <20.0 U
== END 2020-10-30 08:08 | disposition home or self-care (01) ==
LOC: LAB 08:07
PROVIDERS: ATTEND Physician Assistant
DX: K76.0 Fatty (change of) liver, not elsewhere classified (principal)
CPT/HCPCS: 36415; 80061; 82728; 82784; 82785; 83516; 83540; 83721; 84466; 86376